=== PATIENT | male | born 1965 ===

== ENCOUNTER 2019-05-01 16:51 | Emergency (ER) | payer SELFPAY ==
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
== END 2019-05-01 18:23 | disposition home or self-care (01) ==
LOC: ERS 16:51
DX: S16.1XXA Strain of muscle, fascia and tendon at neck level, initial encounter (principal); R07.89 Other chest pain; E11.9 Type 2 diabetes mellitus without complications; F31.9 Bipolar disorder, unspecified; F17.210 Nicotine dependence, cigarettes, uncomplicated; Z79.84 Long term (current) use of oral hypoglycemic drugs; Z79.899 Other long term (current) drug therapy; V89.2XXA Person injured in unspecified motor-vehicle accident, traffic, initial encounter
CPT/HCPCS: 70450; 71045; 72125